=== PATIENT | female | born 1950 | race African-American/Black ===

== ENCOUNTER 2024-03-05 04:17 | Inpatient (IN) | payer OTHER ==
[2024-03-04 11:07] VITALS: BMI 34.3
[2024-03-05] MEDS ORDERED: CEFOXITIN SODIUM/DEXTROSE,ISO 2 GM/50 ML BAG ONE ×2 (07:08→12:22)
[2024-03-05] MEDS ORDERED: HEPARIN NA (PORCINE) 5,000 UNITS/ML 1ML VIAL ONE (07:08)
[2024-03-05] MEDS ORDERED: BUPIVACAINE HCL/PF 0.25% (2.5MG/ML) 10 ML VIAL ONE (07:08)
[2024-03-05] MEDS ORDERED: INDOCYANINE GREEN 25 MG/10 ML VIAL IVPUSH ONE (07:08)
[2024-03-05] MEDS ORDERED: ROCURONIUM BROMIDE 50 MG/5 ML SYRINGE ONE ×4 (07:17→11:03)
[2024-03-05] MEDS ORDERED: PROPOFOL 20 ML ONE (07:17)
[2024-03-05] MEDS ORDERED: MIDAZOLAM HCL 2 MG/2 ML SINGLE DOSE VIAL ONE (07:18)
[2024-03-05] MEDS ORDERED: LIDOCAINE HCL/PF 2% SDV 5ML VIAL ONE (07:19)
[2024-03-05] MEDS ORDERED: ONDANSETRON 4 MG/2 ML VIAL IVPUSH PRN (07:49)
[2024-03-05] MEDS ORDERED: oxyCODONE HCL 5 MG TABLET PO PRN (07:49)
[2024-03-05] MEDS: ACETAMINOPHEN 1000 MG/100 ML BAG IVPB SCH (08:00)
[2024-03-05] MEDS: cefOXitin SODIUM 2 GM VIAL (RESTRICTED TO ID) IVPB ONE ×4 (08:22→12:30)
[2024-03-05] MEDS: BUPIVACAINE HCL/PF 0.25% (2.5MG/ML) 10 ML VIAL IJ ONE (08:43)
[2024-03-05] MEDS ORDERED: ACETAMINOPHEN INJECTION 100 ML ONE (10:24)
[2024-03-05] MEDS ORDERED: SUGAMMADEX SODIUM 200 MG/2 ML VIAL ONE (11:07)
[2024-03-05] MEDS ORDERED: SEVOFLURANE 250 ML BTL ONE (11:47)
[2024-03-05] MEDS: LACTATED RINGERS SOLUTION 1,000 ML IV SCH (14:41)
[2024-03-05] MEDS: CEFAZOLIN SODIUM 2 GM in DEXTROSE 5%-WATER 100 ML IVPB ONE (15:59)
[2024-03-05] MEDS ORDERED: CEFOXITIN SODIUM 2 GM in DEXTROSE 5%-WATER - 100 ML IVPB SCH (16:30)
[2024-03-05] MEDS: oxyCODONE HCL 5 MG TABLET PO PRN (17:18)
[2024-03-05] MEDS: CEFOXITIN SODIUM/DEXTROSE,ISO 2 GM/50 ML BAG IVPB SCH (20:51)
[2024-03-05] MEDS: ATORVASTATIN CA 10 MG TABLET (FP) PO SCH (21:42)
[2024-03-06] MEDS: ENOXAPARIN NA (PORCINE) 40 MG/0.4 ML DISP.SYRIN SQ SCH (09:07)
[2024-03-06] MEDS: METOPROLOL TARTRATE 25 MG TABLET (FP) PO SCH (09:07)
[2024-03-06 10:10] LABS: BASO % 0.1 % (0-2.0); HEMOGLOBIN 11.1 GM/dL (10.7-15.3); LYMPH % 17.8 % (8-40); MCH 27.7 pg (25.7-33.7); MCHC 33.6 g/dl (32.0-36.0); MEAN CELL VOLUME 82.3 fl (80-96); MEAN PLT VOLUME 9.4 fl (7.5-11.1); MONO % 9.2 % (3.8-10.2); NEUT % 72.9 % (42.8-82.8); PLATELET COUNT 216 10^3/uL (134-434); RBC 4.01 M/mm3 (3.60-5.2); WHITE BLOOD COUNT 8.7 K/mm3 (4.0-10.0)
[2024-03-06 10:27] LABS: BLOOD UREA NITROGEN 7.2 mg/dL (7-18); CALCIUM 8.9 mg/dL (8.5-10.1)
[2024-03-06 10:28] LABS: MAGNESIUM 1.9 mg/dL (1.8-2.4)
[2024-03-06 10:31] LABS: CREATININE 0.7 mg/dL (0.55-1.3); PHOSPHOROUS 3.6 mg/dL (2.5-4.9)
[2024-03-06 10:51] LABS: ALBUMIN 2.9 g/dl (3.4-5.0)
[2024-03-06 10:54] LABS: BILIRUBIN,DIRECT 0.2 mg/dL (0.0-0.2)
[2024-03-06 10:56] LABS: BILIRUBIN,TOTAL 0.6 mg/dL (0.2-1); TOT PROT 5.8 g/dl (6.4-8.2)
[2024-03-06] MEDS: LACTATED RINGERS SOLUTION 1,000 ML IV SCH (11:19)
[2024-03-07] MEDS: ACETAMINOPHEN 325 MG TABLET (FP) PO ONE (03:38)
[2024-03-07 09:19] LABS: BASO % 0.2 % (0-2.0); EOS % 2.6 % (0-4.5); HEMATOCRIT 33.3 % (32.4-45.2); HEMOGLOBIN 11.3 GM/dL (10.7-15.3); LYMPH % 33.3 % (8-40); MCHC 33.9 g/dl (32.0-36.0); MEAN CELL VOLUME 82.7 fl (80-96); MEAN PLT VOLUME 9.2 fl (7.5-11.1); MONO % 11.7 % (3.8-10.2); NEUT % 52.2 % (42.8-82.8); PLATELET COUNT 205 10^3/uL (134-434); RBC 4.02 M/mm3 (3.60-5.2); RDW 13.1 % (11.6-15.6)
[2024-03-07 09:32] LABS: POTASSIUM 3.8 mmol/L (3.5-5.1)
[2024-03-07 09:36] LABS: CALCIUM 8.8 mg/dL (8.5-10.1)
[2024-03-07 09:37] LABS: BLOOD UREA NITROGEN 6.3 mg/dL (7-18)
[2024-03-07 09:40] LABS: CREATININE 0.7 mg/dL (0.55-1.3); PHOSPHOROUS 2.7 mg/dL (2.5-4.9)
[2024-03-07] MEDS: ACETAMINOPHEN 500 MG TABLET (FP) PO SCH (13:47)
[2024-03-08 08:47] LABS: BASO % 0.2 % (0-2.0); EOS % 5.2 % (0-4.5); HEMATOCRIT 34.9 % (32.4-45.2); HEMOGLOBIN 11.6 GM/dL (10.7-15.3); LYMPH % 39.7 % (8-40); MCH 27.9 pg (25.7-33.7); MCHC 33.1 g/dl (32.0-36.0); MEAN CELL VOLUME 84.2 fl (80-96); MEAN PLT VOLUME 8.8 fl (7.5-11.1); MONO % 10.1 % (3.8-10.2); NEUT % 44.8 % (42.8-82.8); PLATELET COUNT 230 10^3/uL (134-434); RBC 4.15 M/mm3 (3.60-5.2); RDW 13.2 % (11.6-15.6); WHITE BLOOD COUNT 5.4 K/mm3 (4.0-10.0)
[2024-03-08 09:06] LABS: POTASSIUM 3.8 mmol/L (3.5-5.1)
[2024-03-08 09:10] LABS: CALCIUM 9.1 mg/dL (8.5-10.1)
[2024-03-08 09:11] LABS: BLOOD UREA NITROGEN 8.5 mg/dL (7-18)
[2024-03-08 09:14] LABS: CREATININE 0.6 mg/dL (0.55-1.3)
[2024-03-08 15:17] VITALS: BP 143/78; PULSE 59; RESP 18; TEMP 98.4
== END 2024-03-08 16:45 | disposition home or self-care (01) | DRG 331 ==
LOC: J2C 04:17 → J8W 15:09
PROVIDERS: ADMIT Internal Medicine
PROC: 8E0W0CZ Robotic Assisted Procedure of Trunk Region, Open Approach (ICD-10-PCS; 2024-03-05)
PROC: 0DTF0ZZ Resection of Right Large Intestine, Open Approach (ICD-10-PCS; principal; 2024-03-05 08:00)
DX: D12.0 Benign neoplasm of cecum (principal); K63.5 Polyp of colon; I10 Essential (primary) hypertension; E78.5 Hyperlipidemia, unspecified; K21.9 Gastro-esophageal reflux disease without esophagitis; E66.9 Obesity, unspecified; Z68.34 Body mass index [BMI] 34.0-34.9, adult
CPT/HCPCS: 36415; 80048; 80076; 83735; 84100; 85025; 86140; 86850; 86900; 86901; 88307-TC; 94760; J0131; J1644